=== PATIENT | male | born 1960 | race Two or more races ===

== ENCOUNTER 2021-10-12 07:20 | Outpatient (CLI) | payer OTHER | END 2021-10-12 07:22 | disposition home or self-care (01) | LOC: LAB 07:20 | PROVIDERS: ATTEND Pediatrics | DX: Z00.00 Encounter for general adult medical examination without abnormal findings (principal) ==

== ENCOUNTER → 2021-12-02 08:25 | Outpatient (CLI) | payer OTHER | END | disposition home or self-care (01) | LOC: LAB 08:25 | PROVIDERS: ATTEND Internal Medicine Endocrinology, Diabetes & Metabolism | DX: E03.8 Other specified hypothyroidism (principal) ==

== ENCOUNTER → 2023-05-18 09:24 | Outpatient (CLI) | payer OTHER ==
[2023-05-18 10:34] LABS: HEMATOCRIT 42.6 % (39.0-48.0); HEMOGLOBIN 14.3 g/dL (13-16.00); MEAN CELL VOLUME 90.2 fL (80.0-100.00); MEAN CORPUSCULAR HEMOGLOBIN 30.2 pg (27.00-32.0); MEAN CORPUSCULAR HGB CONC 33.5 g/dl (32.0-36.0); PLATELET COUNT 248 K/uL (150-450); RED BLOOD COUNT 4.73 M/uL (4.00-6.00); RED CELL DISTRIBUTION WIDTH 13.2 % (11.5-14.5)
[2023-05-18 10:54] LABS: URINE APPEARANCE Clear; URINE BILIRRUBIN Negative (NEGATIVE); URINE BLOOD Negative; URINE COLOR Yellow; URINE LEUKOCYTE Negative; URINE NITRATE Negative; URINE PROTEIN Negative (NEGATIVE); URINE UROBILINOGEN 0.2 E.U./dl
[2023-05-18 10:57] LABS: URINE BACTERIA 28.9 uL (0.0-1933); URINE EPITHELIAL CELLS 6.7 uL (0.0-38.8); URINE WBC 2.9 uL (0.0-23.2)
[2023-05-18 11:01] LABS: URINE GLUCOSE >=1000 MG/DL (NEGATIVE)
[2023-05-18 11:05] LABS: CALCIUM 9.9 mg/dL (8.5-10.1); CHOL HDL RATIO 2.4 (0-5.0); CREATININE SERUM 0.86 mg/dL (0.70-1.30); GLOBULINA 3.5 G/DL (2.4-3.5); T4 TOTAL 9.5 UG/DL (4.5-12.1); TOTAL PROTEIN 7.5 gm/dL (6.4-8.2)
[2023-05-18 11:37] LABS: T3 TOTAL 1.05 ng/ml (0.846-2.02); VITAMIN D3 25 HYDROXY 26.69 ng/ml (30-120)
[2023-05-18 17:34] LABS: GFR 90.11
== END | disposition home or self-care (01) ==
LOC: LAB 09:24
DX: E11.9 Type 2 diabetes mellitus without complications (principal); E11.29 Type 2 diabetes mellitus with other diabetic kidney complication